=== PATIENT | male | born 1965 | race African-American/Black ===

== ENCOUNTER 2018-06-12 08:39 | Emergency (ER) | payer MEDICAID ==
[~2018-06-12] VITALS: Ht 172.7 cm; Wt 106.8 kg
[~2018-06-12 08:39] MED LIST: ASPI-650 PO; FERR325T18 PO; LEVE500T53 PO; MULT-750 PO; OXYC1TAB7 PO; SODI1TAB PO
[2018-06-12 10:30] VITALS: BP 105/63
--- NOTE | 2018-06-12 10:37 | NUR ---
Patient Passed ambulation test.
--- NOTE | 2018-06-12 10:45 | NUR ---
Patient left prior to d/c paperwork ready. Steady gait out to lobby.
== END 2018-06-12 10:48 | disposition home or self-care (01) ==
LOC: ED 09:39
DX: S00.31XA Abrasion of nose, initial encounter (principal); F10.129 Alcohol abuse with intoxication, unspecified; W01.0XXA Fall on same level from slipping, tripping and stumbling without subsequent striking against object, initial encounter; Y93.89 Activity, other specified; Y92.89 Other specified places as the place of occurrence of the external cause; Y99.8 Other external cause status; Y90.9 Presence of alcohol in blood, level not specified
CPT/HCPCS: 99283